=== PATIENT | female | born 1975 | race Caucasian/White ===

== ENCOUNTER 2017-06-06 08:24 | Emergency (ER) | payer MEDICAID ==
[2017-06-06 09:33] LABS: URINE PH (Dip) POC 5.5 (5.0-8.5)
[2017-06-06 09:33] LABS: URINE BLOOD (Dip) POC Negative (NEGATIVE); URINE GLUCOSE (Dip) POC Negative (NEGATIVE); URINE KETONES (Dip) POC Negative (NEGATIVE); URINE LEUKOCYTE EST (Dip) POC Negative (NEGATIVE); URINE NITRITE (Dip) POC Negative (NEGATIVE); URINE TOTAL PROTEIN POC Negative (NEGATIVE)
[2017-06-06] MEDS: LIDOCAINE 1% (MDV) 10 ML INJ INFIL (09:40)
== END 2017-06-06 10:59 | disposition home or self-care (01) ==
LOC: FTE 08:24
DX: N75.1 Abscess of Bartholin's gland (principal)
CPT/HCPCS: 56420; 81003; 81025; 99283-25

== ENCOUNTER 2018-03-19 22:10 | Emergency (ER) | payer MEDICAID ==
[2018-03-19] MEDS: IBUPROFEN 600 MG TAB PO (23:42)
[2018-03-19] MEDS: LIDOCAINE 1% (MDV) 20 ML INJ SC (23:42)
== END 2018-03-20 01:10 | disposition home or self-care (01) ==
LOC: FTE 03-20 01:10
DX: N75.0 Cyst of Bartholin's gland (principal); D17.22 Benign lipomatous neoplasm of skin and subcutaneous tissue of left arm; R40.2412 Glasgow coma scale score 13-15, at arrival to emergency department
CPT/HCPCS: 56420; 99283-25

== ENCOUNTER 2018-03-22 19:50 | Emergency (ER) | payer MEDICAID ==
[2018-03-22] MEDS: LIDOCAINE 1% (MDV) 20 ML INJ SC (23:06)
== END 2018-03-23 00:24 | disposition home or self-care (01) ==
LOC: FTE 03-23 00:24
DX: N75.0 Cyst of Bartholin's gland (principal)
CPT/HCPCS: 56420; 99283-25

== ENCOUNTER 2018-05-31 18:20 | Emergency (ER) | payer MEDICAID ==
[2018-05-31 20:57] LABS: URINE BLOOD (Dip) POC 3+ (NEGATIVE); URINE GLUCOSE (Dip) POC Negative (NEGATIVE); URINE KETONES (Dip) POC Negative (NEGATIVE); URINE LEUKOCYTE EST (Dip) POC 2+ (NEGATIVE); URINE NITRITE (Dip) POC Negative (NEGATIVE); URINE TOTAL PROTEIN POC Negative (NEGATIVE)
[2018-05-31 20:57] LABS: URINE PH (Dip) POC 5.5 (5.0-8.5)
== END 2018-05-31 21:19 | disposition home or self-care (01) ==
LOC: FTE 18:20
DX: N39.0 Urinary tract infection, site not specified (principal)
CPT/HCPCS: 81003; 81025; 99283